=== PATIENT | male | born 1950 | race Two or more races ===

== ENCOUNTER 2019-08-08 11:28 | Inpatient (IN) | payer MEDICARE, OTHER ==
[~2019-08-08] VITALS: Ht 175.3 cm; Wt 73.9 kg
[2019-08-08 11:48] VITALS: BP 127/67
[2019-08-08 15:36] LABS: BASOPHILS % 0.4 % (0.0-2.0); EOSINOPHILS % 1.4 % (0.0-5.0); HEMATOCRIT. 40.3 % (42.0-52.0); LYMPHOCYTES % 38.9 % (20.0-50.0); MEAN CORPUSCULAR HEMOGLOBIN 31.4 pg (28.0-32.0); MEAN CORPUSCULAR VOLUME 90.5 fL (80.0-94.0); MEAN PLATELET VOLUME 9.1 fl (7.4-10.4); MONOCYTES % 7.6 % (2.0-8.0); NEUTROPHILS % 51.7 % (40.0-76.0); PLATELET 143 x1000/uL (130-400); RED BLOOD CELL COUNT 4.46 mill/uL (4.7-6.1)
[2019-08-08 15:41] LABS: CHLORIDE 112 mEq/L (98-107)
[2019-08-08 20:00] VITALS: BP 125/80
[2019-08-08] MEDS ORDERED: IBUPROFEN 600MG TABLET PO PRN (20:30)
[2019-08-08] MEDS ORDERED: MORPHINE SULFATE 2 MG/ML CPJ (NOT FOR IM USE) IV PRN (23:30)
[2019-08-08] MEDS ORDERED: HYDROCODONE/ACETAMINOPHEN 5/325MG TABLET PO PRN (23:30)
[2019-08-08] MEDS ORDERED: ONDANSETRON HCL 4MG/2ML INJ IV PRN (23:30)
[2019-08-09] VITALS: BP 108/55
[2019-08-09 04:00] VITALS: BP 136/73
[2019-08-09] MEDS: SODIUM CHLORIDE 0.9% 1,000 ML IV SCH ×2 (06:30→08:58)
[2019-08-09 08:00] VITALS: BP 109/65
[2019-08-09] MEDS: ENOXAPARIN 40MG/0.4ML SYR SUBCUT SCH (08:57)
[2019-08-09 12:00] VITALS: BP 124/70
[2019-08-09 16:00] VITALS: BP 116/91
[2019-08-09 17:35] LABS: CLARITY URINE CLEAR (CLEAR); COLOR URINE YELLOW (YELLOW); KETONES URINE NEGATIVE (NEGATIVE); LEUKOCYTE ESTERASE URINE NEGATIVE (NEGATIVE); NITRITE URINE NEGATIVE (NEGATIVE); OCCULT BLOOD URINE NEGATIVE (NEGATIVE); PH URINE 5.5 (4.5-8.0); PROTEIN URINE NEGATIVE (NEGATIVE); SPECIFIC GRAVITY URINE 1.013 (1.005-1.030); UROBILINOGEN URINE 0.2 E.U./dL (0.2-1.0)
[2019-08-09] MEDS: LACTULOSE 20G/30ML UDC PO SCH ×2 (18:27→22:44)
[2019-08-09 20:00] VITALS: BP 139/83
[2019-08-09] MEDS: METHYLPREDNISOLONE 4MG TABLET PO SCH (21:02)
[2019-08-09] MEDS: LIDOCAINE 5% PATCH TOP SCH (21:08)
[2019-08-10] VITALS: BP 140/78
[2019-08-10 04:00] VITALS: BP 137/80
[2019-08-10] MEDS: METHYLPREDNISOLONE 4MG TABLET PO SCH ×2 (07:02→13:21)
[2019-08-10] MEDS ORDERED: PANTOPRAZOLE 40MG DR TABLET PO SCH (07:20)
[2019-08-10 08:00] VITALS: BP 135/72
[2019-08-10] MEDS: LACTULOSE 20G/30ML UDC PO SCH (09:00)
[2019-08-10] MEDS ORDERED: DOCUSATE SODIUM 100MG CAPSULE PO SCH (09:00)
[2019-08-10] MEDS: ENOXAPARIN 40MG/0.4ML SYR SUBCUT SCH (09:06)
[2019-08-10] MEDS: LIDOCAINE 5% PATCH TOP SCH (09:07)
[2019-08-10 12:00] VITALS: BP 140/78
[2019-08-10 14:06] VITALS: BP 140/78
== END 2019-08-10 14:40 | disposition home or self-care (01) | DRG 552 ==
LOC: 6EST 11:28
PROVIDERS: ADMIT Internal Medicine Nephrology; ATTEND Internal Medicine Nephrology
DX: M47.817 Spondylosis without myelopathy or radiculopathy, lumbosacral region (principal); M48.061 Spinal stenosis, lumbar region without neurogenic claudication; K59.09 Other constipation; E87.8 Other disorders of electrolyte and fluid balance, not elsewhere classified; Z87.891 Personal history of nicotine dependence; E78.00 Pure hypercholesterolemia, unspecified
CPT/HCPCS: 36415; 72148; 74018; 81003; 93970; 97162; 97166; C1893; J1650; J7030; J7509

== ENCOUNTER → 2020-07-16 | Outpatient (CLI) | payer MEDICARE, OTHER | END | disposition home or self-care (01) | LOC: MRI 09:48 | PROVIDERS: ATTEND Neurological Surgery | DX: M47.816 Spondylosis without myelopathy or radiculopathy, lumbar region (principal); M48.061 Spinal stenosis, lumbar region without neurogenic claudication | CPT/HCPCS: 72148 ==

== ENCOUNTER 2023-10-23 20:12 | Emergency (ER) | payer MEDICARE, OTHER, MEDICAID ==
[~2023-10-23] VITALS: Ht 172.7 cm; Wt 70.0 kg
[2023-10-23 20:18] VITALS: O2SAT 97
[2023-10-23 22:28] VITALS: TEMP 98
[2023-10-23 22:56] LABS: BASOPHILS % 0.6 % (0.0-2.0); HEMATOCRIT. 36.9 % (42.0-52.0); HEMOGLOBIN. 12.3 g/dL (14.0-18.0); LYMPHOCYTES % 23.4 % (20.0-50.0); MEAN CORPUSCULAR HEMOGLOBIN 30.7 pg (28.0-32.0); MEAN CORPUSCULAR HGB CONC 33.3 g/dL (31.0-37.0); MEAN CORPUSCULAR VOLUME 92.1 fL (80.0-94.0); MEAN PLATELET VOLUME 7.7 fl (7.4-10.4); MONOCYTES % 7.9 % (2.0-8.0); NEUTROPHILS % 66.1 % (40.0-76.0); PLATELET 144 x1000/uL (130-400); RED BLOOD CELL COUNT 4.01 mill/uL (4.7-6.1); RED CELL DISTRIBUTION WIDTH 15.1 % (11.6-14.6); WHITE BLOOD COUNT 6.1 x1000/uL (4.5-11.0)
[2023-10-23 23:09] LABS: ALANINE AMINOTRANSFERASE 11 IU/L (10-49); ALBUMIN 3.8 g/dL (3.2-4.8); ASPARTATE AMINOTRANSFERASE 18 IU/L (<34); BILIRUBIN TOTAL 0.4 mg/dL (0.1-1.0); CARBON DIOXIDE 28 mEq/L (21-32); CHLORIDE 111 mEq/L (98-107); CREATININE 0.8 mg/dL (0.6-1.3); GLUCOSE 94 mg/dL (70-105); PROTEIN TOTAL 6.3 g/dL (6.0-8.3); SODIUM 143 mEq/L (136-145); UREA NITROGEN BLOOD 18 mg/dL (9-23)
[2023-10-23] MEDS ORDERED: LIDOCAINE HCL/EPINEPHRINE 1%-EPI 1:100,000 20 ML VIAL INFIL ONE (23:30)
[2023-10-23] MEDS ORDERED: BACITRACIN ZINC OINT UDPKT TOP ONE (23:30)
[2023-10-24] MEDS: LIDOCAINE HCL/EPINEPHRINE 1%-EPI 1:100,000 20 ML VIAL INFIL NR ×3 (00:14→00:48)
[2023-10-24 00:49] VITALS: BP 115/64; PULSE 98; RESP 17
== END 2023-10-24 00:50 | disposition home or self-care (01) ==
LOC: ER 20:12
DX: S01.81XA Laceration without foreign body of other part of head, initial encounter (principal); F03.90 Unspecified dementia, unspecified severity, without behavioral disturbance, psychotic disturbance, mood disturbance, and anxiety; W18.39XA Other fall on same level, initial encounter; Y93.89 Activity, other specified; Y92.89 Other specified places as the place of occurrence of the external cause; Y99.8 Other external cause status
CPT/HCPCS: 99284; 70450; 80053; 85025; 36415; 72125; J3490

== ENCOUNTER → 2024-10-01 | Outpatient (CLI) | payer MEDICARE, OTHER | END | disposition home or self-care (01) | LOC: MRI 12:19 | DX: M47.27 Other spondylosis with radiculopathy, lumbosacral region (principal); M16.11 Unilateral primary osteoarthritis, right hip; M48.07 Spinal stenosis, lumbosacral region; I67.82 Cerebral ischemia; M51.379 Other intervertebral disc degeneration, lumbosacral region without mention of lumbar back pain or lower extremity pain; M47.817 Spondylosis without myelopathy or radiculopathy, lumbosacral region; G50.0 Trigeminal neuralgia; R90.82 White matter disease, unspecified; M25.451 Effusion, right hip | CPT/HCPCS: 70551; 72148; 72195 ==